=== PATIENT | male | born 2000 | race Two or more races ===

== ENCOUNTER 2019-03-08 23:14 | Emergency (ER) | payer SELFPAY | END 2019-03-09 00:26 | disposition home or self-care (01) | LOC: ERS 23:14 | DX: J06.9 Acute upper respiratory infection, unspecified (principal); H65.93 Unspecified nonsuppurative otitis media, bilateral | CPT/HCPCS: 87081; 87430; 87804; 99283 ==

== ENCOUNTER 2019-09-03 22:24 | Emergency (ER) | payer SELFPAY ==
[2019-09-03] MEDS ORDERED: Acetaminophen 500 MG TAB ONE (22:53)
== END 2019-09-03 23:04 | disposition home or self-care (01) ==
LOC: ERS 22:24
DX: R20.2 Paresthesia of skin (principal); J45.909 Unspecified asthma, uncomplicated
CPT/HCPCS: 99283

== ENCOUNTER 2019-10-20 22:20 | Emergency (ER) | payer SELFPAY | END 2019-10-20 22:54 | disposition home or self-care (01) | LOC: ERS 22:20 | DX: R20.2 Paresthesia of skin (principal) | CPT/HCPCS: 99281 ==

== ENCOUNTER 2020-02-08 17:26 | Emergency (ER) | payer SELFPAY ==
[2020-02-09 01:44] LABS: SARS-CoV-2 MS2 Positive; SARS-CoV-2 N Gene Negative; SARS-CoV-2 S Gene Negative; SARS-CoV-2 by NAA Not Detected (NotDetected); SARS-CoV-2 orf1ab Negative
== END 2020-02-08 18:10 | disposition home or self-care (01) ==
LOC: ERS 17:26
DX: J02.9 Acute pharyngitis, unspecified (principal); R05 Cough; R50.9 Fever, unspecified; R51.9 Headache, unspecified; J45.909 Unspecified asthma, uncomplicated; Z20.828 Contact with and (suspected) exposure to other viral communicable diseases
CPT/HCPCS: 87635; 99283; U0003

== ENCOUNTER 2020-09-13 01:18 | Emergency (ER) | payer SELFPAY | END 2020-09-13 04:55 | disposition home or self-care (01) | LOC: ERS 01:18 | DX: J02.9 Acute pharyngitis, unspecified (principal) | CPT/HCPCS: 87081; 87430; 99282 ==

== ENCOUNTER 2022-01-25 02:51 | Emergency (ER) | payer SELFPAY | END 2022-01-25 03:25 | LOC: ERS 02:51 | DX: Z02.9 Encounter for administrative examinations, unspecified (principal) | CPT/HCPCS: 99283 ==

== ENCOUNTER 2022-09-18 20:35 | Emergency (ER) | payer SELFPAY ==
[~2022-09-18 20:35] MED LIST: Iopamidol-370 76% 500 ML MDV (1 ML CHARGE) ONE
[2022-09-18 21:11] LABS: #Monocytes 0.7 thou/uL (0.11-0.59); #Neutrophils 5.1 thou/uL (1.40-6.50); %Basophils 0.7 % (0.0-1.0); %Eosinophils 4.3 % (0.0-10.0); %Lymphocytes 35.1 % (21.0-51.0); %Monocytes 7.1 % (0.0-10.0); %Neutrophils 52.6 % (42.0-75.0); Hemoglobin 14.3 g/dL (14.0-18.0); Mean Corpuscular Hemoglobin 28.1 pg (27.0-31.0); Mean Corpuscular Volume 85.1 fl (78.0-98.0); Mean Platelet Volume 11.9 fL (7.4-10.4); Platelet Count 214 10x3/uL (130-400); Red Blood Cell (RBC) Count 5.09 mill/uL (4.70-6.10); White Blood Cell (WBC) Count 9.6 10x3/uL (4.8-10.8)
[2022-09-18 21:12] LABS: #Basophils 0.1 thou/uL (0.0-0.2); #Eosinphils 0.4 thou/uL (0.0-0.7)
[2022-09-18 22:15] LABS: Anion Gap 12 mmol/L (10-20); BUN (Urea Nitrogen) 12 mg/dL (8.9-20.6); Calc. Creatinine Clearance 0 mL/min (70-130); Carbon Dioxide 30 mmol/L (22-29); Chloride 102 mmol/L (98-107); Potassium 3.7 mmol/L (3.5-5.1); Sodium 140 mmol/L (136-145)
[2022-09-18 22:16] LABS: ALT (SGPT) 20 U/L (8-55); AST (SGOT) 23 U/L (5-34); Albumin 4.6 g/dL (3.5-5.0); Alkaline Phosphatase 54 U/L (40-110); Bilirubin, Total 0.9 mg/dL (0.2-1.2); CK (CPK) 98 U/L (30-200); Calcium 9.4 mg/dL (7.8-10.44); Estimated GFR 87; Glucose 56 mg/dL (70-105); Magnesium 2.1 mg/dL (1.6-2.6); Protein, Total 7.6 g/dL (6.0-8.3)
== END 2022-09-18 22:35 | disposition home or self-care (01) ==
LOC: ERS 20:35
DX: R00.2 Palpitations (principal)
CPT/HCPCS: 71045; 71275; 80053; 82550; 83735; 84443; 84484; 85025; 93005; 96360; 96361; Q9967

== ENCOUNTER 2022-12-05 19:54 | Emergency (ER) | payer SELFPAY ==
[2022-12-05 21:07] LABS: SARS-CoV-2 NAA Rapid Test Not Detected (NotDetected)
== END 2022-12-05 23:35 | disposition home or self-care (01) ==
LOC: ERS 19:54
DX: J06.9 Acute upper respiratory infection, unspecified (principal); Z20.822 Contact with and (suspected) exposure to COVID-19
CPT/HCPCS: 99283

== ENCOUNTER 2023-01-31 03:58 | Emergency (ER) | payer SELFPAY ==
[2023-01-31 05:17] LABS: Bacteria/HPF None Seen HPF (None Seen); Bilirubin Negative (Negative); Blood, Urine Negative (Negative); CAUTI Indications for Culture Dysuria,urgency,freq; Clarity Clear (Clear); Glucose, Urine (Dipstick) Normal (Negative); Ketone, Urine Negative (Negative); Leukocyte Negative Leu/uL (Negative); Nitrite Negative (Negative); Protein, Urine (Dipstick) Negative (Neg-Trace); RBC/HPF None Seen HPF (0-3); Squamous Epithelial None Seen HPF (0-3); Urobilinogen Normal mg/dL (Less than 2); WBC/HPF None Seen HPF (0-3); pH, Urine 6.5 (5.0-9.0)
[2023-01-31 05:18] LABS: Specific Gravity, Urine 1.002 (1.002-1.036)
[2023-01-31 05:19] LABS: Urine Culture Reflex No No
[2023-01-31 17:05] LABS: Chlam.trachomatis by PCR,Urine Not Detected (NotDetected); GC N.gonorrhoeae PCR,UrineVOID Not Detected (NotDetected)
== END 2023-01-31 05:23 | disposition home or self-care (01) ==
LOC: ERS 03:58
DX: R30.0 Dysuria (principal)
CPT/HCPCS: 36416; 81001; 87491; 87591; 99283

== ENCOUNTER 2023-04-03 06:09 | Emergency (ER) | payer SELFPAY ==
[2023-04-03] MEDS ORDERED: Acetaminophen 500 MG TAB ONE ×2 (07:18→07:20)
[2023-04-03] MEDS ORDERED: Ketorolac Tromethamine 30 MG (1 mL) VIAL ONE (07:19)
[2023-04-03] MEDS ORDERED: diphenhydrAMINE 50 MG/ML VIAL ONE (07:19)
[2023-04-03] MEDS ORDERED: Metoclopramide HCl 10 MG (2 mL) VIAL ONE (07:19)
[2023-04-03 07:42] LABS: #Eosinphils 0.2 thou/uL (0.0-0.7); #Monocytes 0.6 thou/uL (0.11-0.59); #Neutrophils 5.1 thou/uL (1.40-6.50); %Basophils 0.5 % (0.0-1.0); %Lymphocytes 23.7 % (21.0-51.0); %Monocytes 7.5 % (0.0-10.0); Hematocrit 44.1 % (42.0-52.0); Hemoglobin 14.5 g/dL (14.0-18.0); Mean Corpuscular HGB CONC 32.9 g/dL (32.0-36.0); Mean Corpuscular Hemoglobin 28.7 pg (27.0-31.0); Mean Corpuscular Volume 87.3 fl (78.0-98.0); Mean Platelet Volume 11.6 fL (7.4-10.4); Platelet Count 178 10x3/uL (130-400); RBC Distribution Width 12.8 % (11.5-14.5); Red Blood Cell (RBC) Count 5.05 mill/uL (4.70-6.10); White Blood Cell (WBC) Count 7.6 10x3/uL (4.8-10.8)
[2023-04-03 08:07] LABS: ALT (SGPT) 22 U/L (8-55); AST (SGOT) 26 U/L (5-34); Albumin 4.4 g/dL (3.5-5.0); Alkaline Phosphatase 43 U/L (40-110); Anion Gap 11 mmol/L (10-20); BUN (Urea Nitrogen) 11 mg/dL (8.9-20.6); Bilirubin, Total 1.4 mg/dL (0.2-1.2); Calc. Creatinine Clearance 0 mL/min (70-130); Calcium 9.1 mg/dL (7.8-10.44); Carbon Dioxide 27 mmol/L (22-29); Chloride 103 mmol/L (98-107); Estimated GFR 101; Globulin 3.3 g/dL (2.4-3.5); Glucose 112 mg/dL (70-105); Potassium 3.7 mmol/L (3.5-5.1); Protein, Total 7.7 g/dL (6.0-8.3); Sodium 137 mmol/L (136-145)
== END 2023-04-03 08:50 | disposition home or self-care (01) ==
LOC: ERS 06:09
DX: R51.9 Headache, unspecified (principal); R11.0 Nausea; F90.9 Attention-deficit hyperactivity disorder, unspecified type
CPT/HCPCS: 80053; 85025; 96365; 96375; J1200; J1885; J2765

== ENCOUNTER 2023-09-18 02:46 | Emergency (ER) | payer OTHER ==
[2023-09-18] MEDS ORDERED: Meclizine HCl 25 MG TAB ONE (03:04)
[2023-09-18 03:28] LABS: #Basophils 0.06 10x3/uL (0.0-0.2); %Basophils 0.7 % (0.0-1.0); %Eosinophils 6.1 % (0.0-10.0); %Lymphocytes 27.8 % (21.0-51.0); %Monocytes 6.3 % (0.0-10.0); %Neutrophils 58.8 % (42.0-75.0); Hematocrit 47.2 % (42.0-52.0); Hemoglobin 15.8 g/dL (14.0-18.0); Mean Corpuscular HGB CONC 33.5 g/dL (32.0-36.0); Mean Corpuscular Volume 83.7 fL (78.0-98.0); Mean Platelet Volume 11.6 fL (7.4-10.4); Platelet Count 228 10x3/uL (130-400); RBC Distribution Width 12.5 % (11.5-14.5); Red Blood Cell (RBC) Count 5.64 mill/uL (4.70-6.10)
[2023-09-18 03:41] LABS: Bacteria/HPF None Seen HPF (None Seen); Bilirubin Negative (Negative); Blood, Urine Negative (Negative); CAUTI Indications for Culture Alt mental st,lethar; Clarity Clear (Clear); Glucose, Urine (Dipstick) Normal (Negative); Ketone, Urine Negative (Negative); Leukocyte Negative Leu/uL (Negative); Nitrite Negative (Negative); Protein, Urine (Dipstick) Negative (Neg-Trace); RBC/HPF None Seen HPF (0-3); Specific Gravity, Urine 1.002 (1.002-1.036); Squamous Epithelial None Seen HPF (0-3); Urobilinogen Normal mg/dL (Less than 2); WBC/HPF None Seen HPF (0-3); pH, Urine 6.5 (5.0-9.0)
[2023-09-18 03:48] LABS: Magnesium 2.1 mg/dL (1.6-2.6)
[2023-09-18 03:49] LABS: Amphetamine Detected (NotDetected); Barbiturates Screen Not Detected (NotDetected); Benzodiazepine Screen Not Detected (NotDetected); Cocaine Metabolite Screen Not Detected (NotDetected); Methadone Not Detected (NotDetected); Methamphetamine Not Detected (NotDetected); Opiate Screen Not Detected (NotDetected); Oxycodone Screen Not Detected (NotDetected); Phencyclidine (PCP) Not Detected (NotDetected); THC/Cannabinoid Screen Not Detected (NotDetected); Tricyclic Screen Not Detected (NotDetected)
[2023-09-18 03:49] LABS: ALT (SGPT) 17 U/L (8-55); AST (SGOT) 24 U/L (5-34); Acetaminophen Less than 10 mcg/mL (10.0-30.0); Albumin 4.5 g/dL (3.5-5.0); Alcohol Less than 10.0 mg/dL (Less than 10); Alkaline Phosphatase 55 U/L (40-110); Anion Gap 13 mmol/L (10-20); BUN (Urea Nitrogen) 10 mg/dL (8.9-20.6); Calc. Creatinine Clearance 0 mL/min (70-130); Calcium 9.9 mg/dL (7.8-10.44); Carbon Dioxide 27 mmol/L (22-29); Chloride 103 mmol/L (98-107); Estimated GFR 83; Globulin 3.7 g/dL (2.4-3.5); Glucose 64 mg/dL (70-105); Potassium 3.9 mmol/L (3.5-5.1); Protein, Total 8.2 g/dL (6.0-8.3); Salicylate Less than 8.0 mg/dL (15.0-30.0); Sodium 139 mmol/L (136-145)
[2023-09-18 03:51] LABS: Urine Culture Reflex No No
[2023-09-18 04:03] LABS: Troponin I Less than 0.010 ng/mL (< 0.028)
== END 2023-09-18 04:25 | disposition home or self-care (01) ==
LOC: ERS 02:46
DX: R53.1 Weakness (principal); R42 Dizziness and giddiness; Z55.6 Problems related to health literacy
CPT/HCPCS: 70450; 71045; 80053; 80306; 80307; 81001; 83735; 84443; 84484; 85025; 85379; 93005; 96360

== ENCOUNTER 2024-01-24 08:56 | Emergency (ER) | payer OTHER ==
[2024-01-24] MEDS ORDERED: Acetaminophen 500 MG TAB ONE (09:36)
[2024-01-24] MEDS ORDERED: Lidocaine 1% PF 5 ML VIAL ONE (09:36)
[2024-01-24] MEDS ORDERED: Ibuprofen 200 MG TAB ONE (10:09)
== END 2024-01-24 10:17 | disposition home or self-care (01) ==
LOC: ERS 08:56
DX: S01.01XA Laceration without foreign body of scalp, initial encounter (principal); F90.9 Attention-deficit hyperactivity disorder, unspecified type; Y00.XXXA Assault by blunt object, initial encounter
CPT/HCPCS: 12001; 99282

== ENCOUNTER 2024-01-31 20:43 | Emergency (ER) | payer OTHER | END 2024-01-31 21:14 | disposition home or self-care (01) | LOC: ERS 20:43 | DX: S01.01XD Laceration without foreign body of scalp, subsequent encounter (principal); F90.9 Attention-deficit hyperactivity disorder, unspecified type ==